=== PATIENT | female | born 1990 | race Caucasian/White ===

== ENCOUNTER 2021-08-01 09:58 | Emergency (ER) | payer BC ==
[2021-08-01] MEDS ORDERED: 50% Dextrose in Water 50 ML Syringe IVPUSH PRN ×2 (10:12→11:33)
[2021-08-01] MEDS ORDERED: Glucagon,Human Recombinant 1 MG Vial IM PRN ×2 (10:12→11:33)
[2021-08-01] MEDS ORDERED: Sodium Chloride 0.9% 10 ML Syringe FLUSH PRN (10:12)
[2021-08-01] MEDS ORDERED: Sodium Chloride 0.9% 1,000 ML IV SCH ×2 (10:15→11:45)
[2021-08-01] MEDS ORDERED: Insulin Lispro 100 Unit/ML 3 ML KwikPen SUBCUT ONE ×3 (10:15→11:35)
--- NOTE | 2021-08-01 11:06 | EDM.PDOC ---
ED HPI GENERAL MEDICAL PROBLEM - General Chief Complaint: Diabetic Complaint Stated Complaint: CBG 700+ Time Seen by Provider: 08/01/21 10:15 Source of Information: Reports: Patient History Limitations: Reports: No Limitations - History of Present Illness INITIAL COMMENTS - FREE TEXT/NARRATIVE: Patient presented to the ED because of polyuria, polydipsia for 1 week. She also have blurry visin. There is no associated N/V chest or abdominal pain. There is no fever, chills, cough/cold or any UTI s/s. She is otherwise healthy and is on effexor and topmax for anxiety and depression. - Related Data Allergies Allergy/AdvReac Type Severity Reaction Status Date / Time No Known Allergies Allergy Verified 08/01/21 10:32 Home Meds: Home Meds Omeprazole 20 mg PO DAILY 08/01/21 [History] Rosuvastatin [Crestor] 5 mg PO DAILY #30 tab 08/01/21 [Rx] Topiramate [Trokendi Xr] 25 mg PO DAILY 08/01/21 [History] Venlafaxine HCl [Venlafaxine ER] 75 mg PO DAILY 08/01/21 [History] gemfibroziL [Lopid] 600 mg PO BID #60 tablet 08/01/21 [Rx] metFORMIN [Glucophage XR] 500 mg PO BIDMEALS #60 tab.er 08/01/21 [Rx] Past Medical History [employer] History: Reports: Polycystic Ovaries Psychiatric History: Reports: Anxiety, Depression Social & Family History - Family History Family Medical History: No Pertinent Family History - Tobacco Use Tobacco Use Status *Q: Never Tobacco User Second Hand Smoke Exposure: No - Caffeine Use Caffeine Use: Reports: Coffee, Energy Drinks - Recreational Drug Use Recreational Drug Use: No ED ROS GENERAL - Review of Systems Review Of Systems: See Below Constitutional: Reports: No Symptoms HEENT: Reports: No Symptoms Respiratory: Reports: No Symptoms Cardiovascular: Reports: No Symptoms Endocrine: Reports: No Symptoms GI/Abdominal: Reports: No Symptoms : Reports: No Symptoms Musculoskeletal: Reports: No Symptoms Skin: Reports: No Symptoms Neurological: Reports: No Symptoms Psychiatric: Reports: No Symptoms ED EXAM GENERAL NO PERIP PULSE - Physical Exam Exam: See Below Exam Limited By: No Limitations General Appearance: Alert, No Apparent Distress Ears: Normal External Exam, Normal Canal, Hearing Grossly Normal, Normal TMs Nose: Normal Inspection, Normal Mucosa, No Blood Throat/Mouth: Normal Inspection, Normal Lips, Normal Teeth, Normal Oropharynx, Normal Voice Head: Atraumatic, Normocephalic Neck: Normal Inspection, Supple, Non-Tender, Full Range of Motion Respiratory/Chest: No Respiratory Distress, Lungs Clear, Normal Breath Sounds, No Accessory Muscle Use, Chest Non-Tender Cardiovascular: Normal Peripheral Pulses, Regular Rate, Rhythm, No Edema GI/Abdominal: Normal Bowel Sounds, Soft, Non-Tender, No Organomegaly, No Distention, No Abnormal Bruit Back Exam: Normal Inspection, Full Range of Motion Extremities: Normal Inspection, Normal Range of Motion, Non-Tender, No Pedal Edema, Normal Capillary Refill Course - Vital Signs Text/Narrative:: Lab result was reviewed and discussed with patient NS 1 L bolus Humalog 20 U SC x 2 Last Recorded V/S: Last Vital Signs Temp 36.4 C 08/01/21 10:09 Pulse 91 08/01/21 10:09 Resp 16 08/01/21 10:09 BP 138/69 08/01/21 10:09 Pulse Ox 95 08/01/21 10:09 - Orders/Labs/Meds Orders: Active Orders 24 hr Category Date Time Status LIPID PANEL [CHEM] Stat Lab 08/01/21 10:25 Received Dextrose 50% in Water Med 08/01/21 10:12 Active 50 ml IVPUSH ASDIRECTED PRN Dextrose 50% in Water Med 08/01/21 11:33 Active 50 ml IVPUSH ASDIRECTED PRN Glucagon,Human Recombinant [GlucaGen] Med 08/01/21 10:12 Active 1 mg IM ASDIRECTED PRN Glucagon,Human Recombinant [GlucaGen] Med 08/01/21 11:33 Active 1 mg IM ASDIRECTED PRN Sodium Chloride 0.9% [Normal Saline] 1,000 ml Med 08/01/21 10:15 Active IV ASDIRECTED Sodium Chloride 0.9% [Normal Saline] 1,000 ml Med 08/01/21 11:45 Active IV ASDIRECTED Sodium Chloride 0.9% [Saline Flush] Med 08/01/21 10:12 Active 10 ml FLUSH ASDIRECTED PRN Saline Lock Insert [OM.PC] Routine Oth 08/01/21 10:12 Ordered Medication Orders Dextrose/Water (50% Dextrose In Water 50 Ml Syringe) 50 ml IVPUSH ASDIRECTED PRN PRN Reason: Hypoglycemia Dextrose/Water (50% Dextrose In Water 50 Ml Syringe) 50 ml IVPUSH ASDIRECTED PRN PRN Reason: Hypoglycemia Glucagon (Glucagon,Human Recombinant 1 Mg Vial) 1 mg IM ASDIRECTED PRN PRN Reason: Hypoglycemia Glucagon (Glucagon,Human Recombinant 1 Mg Vial) 1 mg IM ASDIRECTED PRN PRN Reason: Hypoglycemia Sodium Chloride (Normal Saline) 1,000 mls @ 999 mls/hr IV ASDIRECTED EUGENE Last Admin: 08/01/21 10:20 Dose: 999 mls/hr Documented by: DIFFCAL Sodium Chloride (Normal Saline) 1,000 mls @ 999 mls/hr IV ASDIRECTED EUGENE Last Admin: 08/01/21 11:30 Dose: 999 mls/hr Documented by: DIFFCAL Sodium Chloride (Sodium Chloride 0.9% 10 Ml Syringe) 10 ml FLUSH ASDIRECTED PRN PRN Reason: Keep Vein Open Labs: Laboratory Tests 08/01/21 08/01/21 08/01/21 Range/Units 10:04 10:25 10:25 WBC 6.9 (3.0-10.3) x10-3/uL RBC 4.67 (3.60-5.20) x10(6)uL Hgb 13.8 (11.4-15.5) g/dL Hct 38.5 (34.2-48.2) % MCV 82.5 (76.7-100.5) fL MCH 29.5 (23.9-33.9) pg MCHC 35.8 H (31.9-34.8) g/dL RDW 13.6 (12.3-16.5) % Plt Count 338 (151-488) x10(3)uL MPV 8.0 (7.1-12.4) fL Neut % (Auto) 60.8 (30.8-76.2) % Lymph % (Auto) 29.2 (18.4-52.1) % [place] % (Auto) 6.3 (4.4-15.7) % Eos % (Auto) 2.4 (0.6-8.1) % Baso % (Auto) 1.3 (0.2-1.5) % Neut # (Auto) 4.2 (1.5-6.3) x10-3/uL Lymph # (Auto) 2.0 (1.0-4.4) x10-3/uL [place] # (Auto) 0.4 (0.3-1.0) x10-3/uL Eos # (Auto) 0.2 (0.0-0.8) x10-3/uL Baso # (Auto) 0.1 (0.0-0.1) x10-3/uL Sodium 128 L (135-145) mmol/L Potassium 4.3 (3.5-5.3) mmol/L Chloride 92 L (100-110) mmol/L Carbon Dioxide 15 L (21-32) mmol/L BUN 12 (7-18) mg/dL Creatinine 1.1 H (0.55-1.02) mg/dL Est Cr Clr Drug Dosing 58.61 mL/min Estimated GFR (MDRD) 58 L (>60) BUN/Creatinine Ratio 10.9 (9-20) Glucose 699 H* (80-116) mg/dL POC Glucose 553 H* (80-116) mg/dL Calcium 8.2 L (8.6-10.2) mg/dL Total Bilirubin 0.7 (0.1-1.3) mg/dL AST 70 H (5-25) IU/L ALT < 6 L (12-36) U/L Alkaline Phosphatase 105 (56-112) IU/L Total Protein 8.0 (6.0-8.0) g/dL Albumin 3.6 (3.5-5.2) g/dL Globulin 4.4 g/dL Albumin/Globulin Ratio 0.8 Urine Color (YELLOW) Urine Appearance (CLEAR) Urine pH (5.0-6.5) Ur Specific [place] (1.010-1.025) Urine Protein (NEGATIVE) mg/dL Urine Glucose (UA) (NORMAL) mg/dL Urine Ketones (NEGATIVE) mg/dL Urine Occult Blood (NEGATIVE) Urine Nitrite (NEGATIVE) Urine Bilirubin (NEGATIVE) Urine Urobilinogen (NEGATIVE) mg/dL Ur Leukocyte Esterase (NEGATIVE) Urine RBC (0-5) Urine WBC (0-5) Ur Squamous Epith Cells (NS,R,O) Urine Bacteria (NS) /30/21 Range/Units 10:40 WBC (3.0-10.3) x10-3/uL RBC (3.60-5.20) x10(6)uL Hgb (11.4-15.5) g/dL Hct (34.2-48.2) % MCV (76.7-100.5) fL MCH (23.9-33.9) pg MCHC (31.9-34.8) g/dL RDW (12.3-16.5) % Plt Count (151-488) x10(3)uL MPV (7.1-12.4) fL Neut % (Auto) (30.8-76.2) % Lymph % (Auto) (18.4-52.1) % [place] % (Auto) (4.4-15.7) % Eos % (Auto) (0.6-8.1) % Baso % (Auto) (0.2-1.5) % Neut # (Auto) (1.5-6.3) x10-3/uL Lymph # (Auto) (1.0-4.4) x10-3/uL [place] # (Auto) (0.3-1.0) x10-3/uL Eos # (Auto) (0.0-0.8) x10-3/uL Baso # (Auto) (0.0-0.1) x10-3/uL Sodium (135-145) mmol/L Potassium (3.5-5.3) mmol/L Chloride (100-110) mmol/L Carbon Dioxide (21-32) mmol/L BUN (7-18) mg/dL Creatinine (0.55-1.02) mg/dL Est Cr Clr Drug Dosing mL/min Estimated GFR (MDRD) (>60) BUN/Creatinine Ratio (9-20) Glucose (80-116) mg/dL POC Glucose (80-116) mg/dL Calcium (8.6-10.2) mg/dL Total Bilirubin (0.1-1.3) mg/dL AST (5-25) IU/L ALT (12-36) U/L Alkaline Phosphatase (56-112) IU/L Total Protein (6.0-8.0) g/dL Albumin (3.5-5.2) g/dL Globulin g/dL Albumin/Globulin Ratio Urine Color Yellow (YELLOW) Urine Appearance Clear (CLEAR) Urine pH 5.0 (5.0-6.5) Ur Specific [place] 1.015 (1.010-1.025) Urine Protein Negative (NEGATIVE) mg/dL Urine Glucose (UA) >1000 H (NORMAL) mg/dL Urine Ketones Negative (NEGATIVE) mg/dL Urine Occult Blood Moderate H (NEGATIVE) Urine Nitrite Negative (NEGATIVE) Urine Bilirubin Negative (NEGATIVE) Urine Urobilinogen Normal (NEGATIVE) mg/dL Ur Leukocyte Esterase Negative (NEGATIVE) Urine RBC 5-10 H (0-5) Urine WBC 0-5 (0-5) Ur Squamous Epith Cells Few H (NS,R,O) Urine Bacteria Rare H (NS) Meds: Medications Generic Name Dose Route Start Last Admin Trade Name Freq PRN Reason Stop Dose Admin Dextrose/Water 50 ml 08/01/21 10:12 50% Dextrose In Water 50 Ml Syringe IVPUSH ASDIRECTED PRN Hypoglycemia Dextrose/Water 50 ml 08/01/21 11:33 50% Dextrose In Water 50 Ml Syringe IVPUSH ASDIRECTED PRN Hypoglycemia Glucagon 1 mg 08/01/21 10:12 Glucagon,Human Recombinant 1 Mg Vial IM ASDIRECTED PRN Hypoglycemia Glucagon 1 mg 08/01/21 11:33 Glucagon,Human Recombinant 1 Mg Vial IM ASDIRECTED PRN Hypoglycemia Sodium Chloride 1,000 mls @ 999 mls/hr 08/01/21 10:15 08/01/21 10:20 Normal Saline IV 999 mls/hr ASDIRECTED EUGENE Administration Sodium Chloride 1,000 mls @ 999 mls/hr 08/01/21 11:45 08/01/21 11:30 Normal Saline IV 999 mls/hr ASDIRECTED EUGENE Administration Sodium Chloride 10 ml 08/01/21 10:12 Sodium Chloride 0.9% 10 Ml Syringe FLUSH ASDIRECTED PRN Keep Vein Open Discontinued Medications Generic Name Dose Route Start Last Admin Trade Name Freq PRN Reason Stop Dose Admin Insulin Human Lispro 20 unit 08/01/21 10:15 08/01/21 10:27 Insulin Lispro 100 Unit/Ml 3 Ml Kwikpen SUBCUT 08/01/21 10:16 20 units ONETIME ONE Administration Insulin Human Lispro 20 unit 08/01/21 11:35 08/01/21 11:38 Insulin Lispro 100 Unit/Ml 3 Ml Kwikpen SUBCUT 08/01/21 11:36 20 units ONETIME ONE Administration Departure - Departure Time of Disposition: 12:25 Disposition: Home, Self-Care 01 Condition: Good Clinical Impression: New onset type 2 diabetes mellitus, Dyslipidemia - Discharge Information Prescriptions: Rosuvastatin [Crestor] 5 mg PO DAILY #30 tab metFORMIN [Glucophage XR] 500 mg PO BIDMEALS #60 tab.er gemfibroziL [Lopid] 600 mg PO BID #60 tablet Instructions: Type 2 Diabetes Mellitus, Self-Care, Adult, [id number], High Cholesterol Referrals: Isis Fuentes PA-C [Primary Care Provider] - Forms: ED Department Discharge Additional Instructions: Please read discharge instructions on diabetes and high cholesterol Low carb, low fat diet, exercise Take gulcophage/metformin 500 mg twice daily then increase to 1000 mg twice daily Lopid/Gemfibrozil 600 mg twice daily for high triglycerides/fat Crestor 5 mg daily for high cholesterol Follow up with your doctor in 1 week Sepsis Event Note (ED) - Evaluation Sepsis Screening Result: No Definite Risk - Focused Exam Vital Signs: Vital Signs Temp Pulse Resp BP Pulse Ox 08/01/21 10:09 36.4 C 91 16 138/69 95 - My Orders Last 24 Hours: My Active Orders 08/01/21 10:12 Dextrose 50% in Water 50 ml IVPUSH ASDIRECTED PRN Glucagon,Human Recombinant [GlucaGen] 1 mg IM ASDIRECTED PRN Sodium Chloride 0.9% [Saline Flush] 10 ml FLUSH ASDIRECTED PRN Saline Lock Insert [OM.PC] Routine 08/01/21 10:15 Sodium Chloride 0.9% [Normal Saline] 1,000 ml IV ASDIRECTED 08/01/21 10:25 LIPID PANEL [CHEM] Stat 08/01/21 11:33 Dextrose 50% in Water 50 ml IVPUSH ASDIRECTED PRN Glucagon,Human Recombinant [GlucaGen] 1 mg IM ASDIRECTED PRN 08/01/21 11:45 Sodium Chloride 0.9% [Normal Saline] 1,000 ml IV ASDIRECTED - Assessment/Plan Last 24 Hours: My Active Orders 08/01/21 10:12 Dextrose 50% in Water 50 ml IVPUSH ASDIRECTED PRN Glucagon,Human Recombinant [GlucaGen] 1 mg IM ASDIRECTED PRN Sodium Chloride 0.9% [Saline Flush] 10 ml FLUSH ASDIRECTED PRN Saline Lock Insert [OM.PC] Routine 08/01/21 10:15 Sodium Chloride 0.9% [Normal Saline] 1,000 ml IV ASDIRECTED 08/01/21 10:25 LIPID PANEL [CHEM] Stat 08/01/21 11:33 Dextrose 50% in Water 50 ml IVPUSH ASDIRECTED PRN Glucagon,Human Recombinant [GlucaGen] 1 mg IM ASDIRECTED PRN 08/01/21 11:45 Sodium Chloride 0.9% [Normal Saline] 1,000 ml IV ASDIRECTED
== END 2021-08-01 12:55 | disposition home or self-care (01) ==
LOC: FB.ED 09:58
DX: E78.5 Hyperlipidemia, unspecified (principal); E11.9 Type 2 diabetes mellitus without complications; Z79.899 Other long term (current) drug therapy; Z79.84 Long term (current) use of oral hypoglycemic drugs
CPT/HCPCS: 36415; 80053; 80061; 81001; 82947; 85025; 99284; J1815; J7030

== ENCOUNTER 2022-05-20 05:53 | Emergency (ER) | payer BC, OTHER ==
[2022-05-20 07:06] LABS: ESTIMATED GFR 101 mL/min (>60)
== END 2022-05-20 07:45 | disposition home or self-care (01) ==
LOC: FB.ED 05:53
DX: N93.9 Abnormal uterine and vaginal bleeding, unspecified (principal); R73.9 Hyperglycemia, unspecified; Z79.899 Other long term (current) drug therapy; Z79.82 Long term (current) use of aspirin; Z79.84 Long term (current) use of oral hypoglycemic drugs
CPT/HCPCS: 36415; 80048; 81001; 85025; 99284

== ENCOUNTER 2022-11-18 19:45 | Emergency (ER) | payer BC, OTHER ==
[2022-11-18] MEDS ORDERED: Sulfamethoxazole/Trimethoprim 800-160 MG Tab PO ONE (19:46)
[2022-11-18] MEDS ORDERED: Sodium Chloride 0.9% 10 ML Syringe FLUSH PRN (20:13)
[2022-11-18] MEDS ORDERED: Morphine 4 MG/ML VIAL IVPUSH ONE (20:16)
[2022-11-18] MEDS ORDERED: Ondansetron 4 MG/2 ML SDV IVPUSH ONE (20:19)
[2022-11-18] MEDS ORDERED: Sodium Chloride 0.9% 1,000 ML IV SCH (20:30)
[2022-11-18 20:35] LABS: ESTIMATED GFR 118 mL/min (>60)
[2022-11-18] MEDS ORDERED: Iopamidol 755 Mg/ML 100 ML Bottle IV ONE (20:48)
== END 2022-11-18 22:32 | disposition home or self-care (01) ==
LOC: FB.ED 19:45
DX: N83.202 Unspecified ovarian cyst, left side (principal); N39.0 Urinary tract infection, site not specified; E78.00 Pure hypercholesterolemia, unspecified; I10 Essential (primary) hypertension; K21.9 Gastro-esophageal reflux disease without esophagitis; E11.9 Type 2 diabetes mellitus without complications; E66.9 Obesity, unspecified; Z68.43 Body mass index [BMI] 50.0-59.9, adult; Z79.84 Long term (current) use of oral hypoglycemic drugs; Z79.82 Long term (current) use of aspirin; Z79.899 Other long term (current) drug therapy; Z86.16 Personal history of COVID-19
CPT/HCPCS: 36415; 74177; 80053; 81001; 82150; 83690; 84702; 85025; 87086; 96361; 96374; 96375; 99284; A9270; J2270; J2405; J3490; J7030; Q9967; 99283

== ENCOUNTER 2023-02-17 09:02 | Emergency (ER) | payer BC ==
[2023-02-17] MEDS ORDERED: Sodium Chloride 0.9% 10 ML Syringe FLUSH PRN (09:42)
[2023-02-17] MEDS: Sodium Chloride 0.9% 1,000 ML IV ONE (09:50)
[2023-02-17 09:51] LABS: HEMATOCRIT 36.9 % (34.2-48.2); HEMOGLOBIN 12.3 g/dL (11.4-15.5); MEAN CORPUSCULAR HEMOGLOBIN 26.8 pg (23.9-33.9); MEAN CORPUSCULAR HGB CONC 33.4 g/dL (31.9-34.8); MEAN CORPUSCULAR VOLUME 80.2 fL (76.7-100.5); MEAN PLATELET VOLUME 7.6 fL (7.1-12.4); PLATELET COUNT,PLT 461 x10(3)uL (151-488); RED BLOOD CELL COUNT 4.59 x10(6)uL (3.60-5.20); RED CELL DISTRIBUTION WIDTH 14.4 % (12.3-16.5)
[2023-02-17 09:58] LABS: BLOOD UREA NITROGEN,BUN 14 mg/dL (7-18); BUN/CREATININE RATIO 12.7 (9-20); CALCIUM 9.1 mg/dL (8.6-10.2); CARBON DIOXIDE,CO2 22 mmol/L (21-32); CHLORIDE,CL 98 mmol/L (100-110); CREATININE 1.1 mg/dL (0.55-1.02); EST CRCL DRUG DOSING (CG) 58.07 mL/min; ESTIMATED GFR 68 mL/min (>60); GLUCOSE RANDOM 215 mg/dL (80-116); POTASSIUM,K 4.1 mmol/L (3.5-5.3); SODIUM,NA 133 mmol/L (135-145)
[2023-02-17] MEDS ORDERED: Naloxone 0.4 MG/ML SDV IVPUSH PRN (09:58)
[2023-02-17 10:04] LABS: A/G RATIO 0.6; ALANINE AMINOTRANSFERASE,ALT 34 U/L (12-36); ALBUMIN 3.3 g/dL (3.5-5.2); ALKALINE PHOSPHATASE 84 IU/L (56-112); ASPARTATE AMNIOTRANSFERASE,AST 24 IU/L (5-25); BILIRUBIN TOTAL 0.6 mg/dL (0.1-1.3); MAGNESIUM 1.5 mg/dL (1.8-2.5); PROTEIN TOTAL,TP 8.7 g/dL (6.0-8.0)
[2023-02-17] MEDS: Acetaminophen 500 MG Tab PO ONE (10:17)
[2023-02-17] MEDS: Morphine 4 MG/ML VIAL IVPUSH ONE (10:18)
[2023-02-17] MEDS: Ondansetron 4 MG/2 ML SDV IVPUSH ONE (10:19)
[2023-02-17 10:21] LABS: LYMPHOCYTES PERCENT MAN 6 % (13-37); MONOCYTES PERCENT MAN 5 % (4-12); SEG NEUTROPHILS PERCENT MAN 89 % (46-82)
[2023-02-17 10:22] LABS: BILIRUBIN,URINE NEGATIVE (NEGATIVE); GLUCOSE,URINE NORMAL (NORMAL); KETONES,URINE NEGATIVE (NEGATIVE); LEUKOCYTE ESTERASE,URINE LARGE (NEGATIVE); NITRITE,URINE NEGATIVE (NEGATIVE); OCCULT BLOOD,URINE LARGE (NEGATIVE); PROTEIN,URINE TRACE mg/dL (NEGATIVE); UROBILINOGEN,URINE NORMAL (NEGATIVE)
[2023-02-17 10:26] LABS: APPEARANCE,URINE CLOUDY (CLEAR); BACTERIA,URINE MANY (NS); COLOR,URINE YELLOW (YELLOW); RBC,URINE 30-40 (0-5); SQUAMOUS EPITHELIAL CELLS,UR FEW (NS,R,O); WBC,URINE 50-75 (0-5)
[2023-02-17] MEDS: Sodium Chloride 0.9% 1,000 ML IV SCH (11:00)
[2023-02-17] MEDS: Iopamidol 755 Mg/ML 100 ML Bottle IV SCH (11:05)
[2023-02-17] MEDS: Piperacillin/Tazobactam 4.5 GM in Sodium Chloride 0.9% 100 ML IV ONE (13:17)
== END 2023-02-17 15:52 ==
LOC: FB.ED 09:02
DX: K68.11 Postprocedural retroperitoneal abscess (principal); A41.9 Sepsis, unspecified organism; E78.00 Pure hypercholesterolemia, unspecified; I10 Essential (primary) hypertension; K21.9 Gastro-esophageal reflux disease without esophagitis; E11.9 Type 2 diabetes mellitus without complications; E66.9 Obesity, unspecified; Z79.899 Other long term (current) drug therapy; Z79.82 Long term (current) use of aspirin; Z79.84 Long term (current) use of oral hypoglycemic drugs; Z86.16 Personal history of COVID-19; Z68.43 Body mass index [BMI] 50.0-59.9, adult
CPT/HCPCS: 36415; 74177; 80053; 81001; 83605; 83735; 85025; 86140; 87040; 87086; 93005; 96361; 96374; 96375; 99285; A9270; J2270; J2405; J2543; J3490; J7030; Q9967

== ENCOUNTER 2024-11-04 21:37 | Emergency (ER) | payer SELFPAY ==
[2024-11-04] MEDS: Cephalexin 500 MG Cap PO ONE (22:01)
[2024-11-04] MEDS: Acetaminophen/HYDROcodone 325-5 MG Tab PO ONE (22:01)
== END 2024-11-04 22:26 | disposition home or self-care (01) ==
LOC: FB.ED 21:37
DX: K04.7 Periapical abscess without sinus (principal); I10 Essential (primary) hypertension; E11.9 Type 2 diabetes mellitus without complications; E66.9 Obesity, unspecified; K21.9 Gastro-esophageal reflux disease without esophagitis; Z79.899 Other long term (current) drug therapy; Z79.82 Long term (current) use of aspirin; Z79.84 Long term (current) use of oral hypoglycemic drugs; Z90.710 Acquired absence of both cervix and uterus; Z86.16 Personal history of COVID-19; Z68.43 Body mass index [BMI] 50.0-59.9, adult
CPT/HCPCS: 99282; 99283; A9270-GY